=== PATIENT | female | born 1980 | race Caucasian/White ===

== ENCOUNTER → 2017-08-28 10:44 | Outpatient (CLI) | payer BC, SELFPAY ==
--- NOTE | 2017-08-28 10:50 | RAD_ITS ---
STUDY: X-RAY - LUMBOSACRAL SPINE REASON FOR EXAM: Female, 37 years old. Back pain TECHNIQUE: 7 view(s) of the lumbosacral spine including flexion and extension were obtained. COMPARISON: None FINDINGS: Normal lumbar lordosis. There is no substantial scoliosis. There is no subluxation with flexion and extension. Normal vertebral bodies. Disc space narrowing and spurring at L5-S1. . The remainder of the disc spaces are well-preserved. Normal bilateral sacral ala, sacroiliac joints, and visualized sacrum. No fracture seen. Normal visualized soft tissue structures. RAD/L/S Spine Comp/w Bending Views IMPRESSION: Degenerative change at L5-S1. Electronically Signed: Omar Mohan MD at 23:58 EDT , Service support ,
== END ==
PROVIDERS: Family Provider Internal Medicine; PCP Internal Medicine; Visit Provider Orthopaedic Surgery
DX: M54.5 Low back pain (principal)
CPT/HCPCS: 72114

== ENCOUNTER → 2017-10-23 13:19 | Outpatient (CLI) | payer BC, SELFPAY ==
--- NOTE | 2017-10-23 13:22 | RAD_ITS ---
STUDY: X-RAY CHEST REASON FOR EXAM: Female, 37 years old. Cough. Anterior mid upper chest heaviness TECHNIQUE: 2 views with PA and lateral projections. . COMPARISON: None available. FINDINGS: The lungs appear clear and well expanded. There is no demonstrated pleural abnormality. No large gross pneumothorax identified. Normal size heart. Normal mediastinum and kyra. Normal visualized pulmonary arteries. Normal visualized aortic arch and descending thoracic aorta. Trachea midline. Nonacute visualized ribs, clavicles and shoulders. Moderate degenerative upper-mid thoracic spine seen. There is no demonstrated abnormality of the visualized soft tissue structures of the upper abdomen. No subdiaphragmatic free air seen grossly. RAD/Chest PA and Lateral IMPRESSION: Nonacute chest. Electronically Signed: Carl Sanches, at 14:59 EDT Tel , Service support ,
== END ==
PROVIDERS: Family Provider Internal Medicine; PCP Internal Medicine; Visit Provider Internal Medicine
DX: J98.01 Acute bronchospasm (principal)
CPT/HCPCS: 71046

== ENCOUNTER → 2017-11-20 15:58 | Outpatient (CLI) | payer BC, SELFPAY ==
[2017-11-26 12:13] LABS: HPV Reflexed? NOT INDICATED
== END ==
PROVIDERS: Visit Provider Obstetrics & Gynecology
DX: Z12.4 Encounter for screening for malignant neoplasm of cervix (principal)
CPT/HCPCS: 88175; G0145

== ENCOUNTER → 2018-01-16 16:23 | Outpatient (CLI) | payer BC, SELFPAY ==
--- NOTE | 2018-01-16 16:28 | MRI_ITS ---
STUDY: MRI LUMBAR SPINE WITHOUT CONTRAST REASON FOR EXAM: Female, 37 years old. Right low back pain radiating to the right buttock and thigh TECHNIQUE: Standardized fat and water weighted pulse sequences were obtained in the sagittal and axial planes. COMPARISON: None FINDINGS: T12-L1: Normal endplates. Normal disc height, hydration and morphology. Normal bilateral facet joints. Normal central canal and bilateral lateral recesses. Normal bilateral intervertebral neural foramina. Normal lumbar lordosis. There is no substantial scoliosis. Normal conus medullaris that terminates at the L1-2 level. L1-2: Normal endplates. Normal disc height, hydration and morphology. Normal bilateral facet joints. Normal central canal and bilateral lateral recesses. Normal bilateral intervertebral neural foramina. L2-3: Normal endplates. Normal disc height, hydration and morphology. Normal bilateral facet joints. Normal central canal and bilateral lateral recesses. Normal bilateral intervertebral neural foramina. L3-4: Normal endplates. Normal disc height, hydration and morphology. Normal bilateral facet joints. Normal central canal and bilateral lateral recesses. Normal bilateral intervertebral neural foramina. L4-5: Disc desiccation. Bulging annulus without compressive sequelae. L5-S1: Disc space narrowing and desiccation with discogenic endplate changes. Bulging annulus and broad central disc protrusion with mild central canal and bilateral foraminal stenoses. Normal visualized sacral ala. Normal visualized paraspinous soft tissue structures. MRI/Spine Lumbar (Routine) IMPRESSION: Lower lumbar disc disease as described. Mild central canal and bilateral foraminal stenoses at the L5-S1 level. Electronically Signed: Ousmane Gomez MD at 2:10 EST Tel , Service support ,
== END ==
PROVIDERS: Family Provider Internal Medicine; PCP Internal Medicine; Referring Provider Physician Assistant; Visit Provider Physician Assistant
DX: M54.16 Radiculopathy, lumbar region (principal)
CPT/HCPCS: 72148

== ENCOUNTER → 2019-04-30 | Outpatient (CLI) | payer BC, SELFPAY ==
[2018-03-15 10:20] VITALS: BMI 26.6
[2019-05-04 15:04] LABS: HPV Reflexed? NOT INDICATED
== END | disposition home or self-care (01) ==
LOC: LABSPEC 15:01
PROVIDERS: PCP Family Medicine; Visit Provider Obstetrics & Gynecology
DX: Z12.4 Encounter for screening for malignant neoplasm of cervix (principal)
CPT/HCPCS: 88175; G0145

== ENCOUNTER → 2019-05-14 | Outpatient (CLI) | payer BC, SELFPAY ==
[2018-03-15 10:20] VITALS: BMI 26.6
--- NOTE | 2019-05-14 10:23 | BI_ITS ---
MAMMOGRAPHY - BILATERAL SCREENING REASON FOR EXAM: Female, 39 years old. Routine annual screening examination. PERTINENT HISTORY: No family history of breast cancer TECHNIQUE: Digital bilateral breast padma (3D mammographic acquisition) in the CC and MLO projections. 2-D mediolateral oblique (MLO) and craniocaudad (CC) views of both breasts were obtained. CAD: Full Field Digital Mammography with Computer Added Detection was performed. COMPARISON: None. FINDINGS: Breast Composition: Dense central breast structure There are no dominant masses or suspicious calcifications. No other significant abnormalities are identified. BI/SCREEN MAMM (CAD) W/PADMA BILAT IMPRESSION: Stable bilateral screening mammogram. Yearly follow-up mammogram recommended. (A) ASSESSMENT CATEGORY: BIRADS Category 1: Negative. A letter regarding these results will be sent to the patient by the facility within 30 days. Approximately 10% of breast cancers are not detected by mammography. A normal mammogram should not delay biopsy of a clinically suspicious abnormality. [id number] Electronically Signed: Rell Ley, at 16:34 EST Tel , Service support ,
== END | disposition home or self-care (01) ==
LOC: OPBI 10:22
PROVIDERS: PCP Family Medicine; Referring Provider Obstetrics & Gynecology; Visit Provider Obstetrics & Gynecology
DX: Z12.31 Encounter for screening mammogram for malignant neoplasm of breast (principal)
CPT/HCPCS: 77063; 77067

== ENCOUNTER 2020-11-30 08:17 | Outpatient (RCR) | payer SELFPAY ==
--- NOTE | 2021-02-27 12:34 | HP.PT.NRP ---
MAGDIEL B CARMELITA was seen in my office for initial evaluation on . The following Plan of Care was established for this patient: This patient was last seen in our office 11/30/20. Pertinent comments regarding their Physical therapy will appear below: Pt. was seen in PT for self pay DN. She has not been seen in several months and will be DC from PT at this point in time. At this point I will be discontinuing this patient from physical therapy. I would be happy to see this patient again in the future if found appropriate by the physician. Thank you! Vicente Guzmán, GREGGT
== END 2020-11-30 19:00 | disposition home or self-care (01) ==
LOC: PT 08:17
PROVIDERS: PCP Family Medicine
DX: Z00.00 Encounter for general adult medical examination without abnormal findings (principal)

== ENCOUNTER 2021-06-13 16:30 | Outpatient (RCR) | payer OTHER, SELFPAY ==
--- NOTE | 2021-05-23 13:52 | HP.PTEVAL ---
Patient's Visit Information MAGDIEL MAE is a 41 year old F referred to Physical Therapy by IZABELA Rice with a diagnosis of Hamstring. Date of Evaluation: 05/23/21 Physical Therapist: Palmira Segal DPT - Visit Plan Frequency: 2x /Week Duration: 4 Weeks Plan: 30 min modalities- Manual, DN, Cupping, EPAT. 30 min of exercises- focus on glut and posterior chain - Subjective Patient reports falling about a year ago when running on the trails. Tripped with her right and caught herself with her left leg- felt a pull but was able to finish the race. No bruising but has been really sore since. Now its more chronic. She has had some dry needling and it really helped down from a 5 down to a 2. [place] good for a few weeks after and she laid off running. Would do the bike and rolling. She ran all last spring and fall. End of December she ran a full marathon- She has not run a lot since January. She hits about 5 miles and it just doesn't feel right. She cross trained (stationary bike, body weight squats, core, yoga and snowboarding). It feels the same. She feels that she has limited flexibility. She feels that she is 50% back to normal. Pain is located in the left hamstring bulk and if she sits for to long it gets irritated and always feels tight with running. No sharp/shooting. Limited ROM with stretching. - Objective Posture: good throughout session. Gait: slightly antalgic- decreased stride length. HR/TR: able without pain. ROM: Lumbar: flexion: hands to knees with discomfort, all other motions WFL, Hip: WFL no pain with ROM. Strength: Core: fair, Hip: flexion: 4-/5, Extn: 4-/5 with , IR/ER: 4-/5, Abd: 5/5, Add: 5/5 Knee: Hamstrin/5, Extn: 5/5, Ankle: 5/5. Flex: Hamstring 90/90: 90 degrees with pain, Gastroc: moderate. Palpation: tender along gluts from sacrum to greater troch, ischial tuberosity insertion of hamstring, and along hamstring to the knee. SLS: 30 sec increased hip drop and instability. Eccentric Lowering: increased pain and reports hard. - Special Tests. L/S Slump test left side: Negative. L/S Slump test right side: Negative. L/S Left Straight Leg Raise: Negative. L/S Right Straight Leg Raise: Negative. L Hip Scour: Negative. L Hip KELSY - Intraarticular Pathology: Positive. L Hip FADDIR - Labrum: Positive. L Hip Trendelenberg - Glut Medius: Positive. L Knee Valgus - MCL: Negative. L Knee Varus - LCL: Negative - Balance/Special Test Scores Lower Extremity Functional Score: 70 - Goals Goal 1:: Patient will be I with HEP and progression Goal Time Frame: 4-6 Weeks Goal 2:: Patient will increase hamstring flexibility to 120 degrees Goal Time Frame: 4-6 Weeks Goal 3:: Patient will report no pain with running Goal Time Frame: 4-6 Weeks - Rehabilitation Potential Physical Therapy Diagnosis: Patient presents with hypomobility- she has decreased pain free ROM, LE and core strength/stabilization, flex and muscular endurance leading to poor posture and increased pain with ADL's/recreational activities. Rehabilitation Potential: Good - Anticipated Interventions Patient/Client Instruction: Educate patient on: Benefits of Fitness Program Therapeutic Exercise to Include: Strength training, Endurance training, Balance training, Coordination, Agility training, Body mechanics, Postural training, Flexibilty training, Gait and locomotor training, Neuromotor development, Dynamic Lumbar Stabilization, Scapular Strength/Stabilization Manual Therapy Techniques to Include: Mobilization, Functional dry needling, Soft tissue mobilization Thank you for the opportunity to evaluate your patient. For Medicare and Medicare HMO plans, please review the plan of care and approve it. It will need to be FAXED BACK to us at [phone] for Medicare purposes. For Medicare only, by signing this I certify the plan of care. Please let me know if there are questions or concerns regarding this plan of care. Physician Signature: Date:
--- NOTE | 2021-08-30 14:08 | HP.PT.NRP ---
MAGDIEL MAE was seen in my office for initial evaluation on 05/23/21. The following Plan of Care was established for this patient: Initial Frequency: 2x /Week Initial Duration: 4 Weeks Patient/Client Instruction: Educate patient on: Benefits of Fitness Program Therapeutic Exercise to Include: Strength training, Endurance training, Balance training, Coordination, Agility training, Body mechanics, Postural training, Flexibilty training, Gait and locomotor training, Neuromotor development, Dynamic Lumbar Stabilization, Scapular Strength/Stabilization Manual Therapy Techniques to Include: Mobilization, Functional dry needling, Soft tissue mobilization This patient was last seen in our office . Pertinent comments regarding their Physical therapy will appear below: Patient has not attended PT in over 30 days and is independent with HEP- appropriate to be d/c and return to MD for further evaluation as needed. At this point I will be discontinuing this patient from physical therapy. I would be happy to see this patient again in the future if found appropriate by the physician. Thank you! Palmira Segal, GREGGT Balance/Gait/Functional tests - Balance/Special Test Scores Lower Extremity Functional Score: 70
== END 2021-06-13 19:00 | disposition home or self-care (01) ==
LOC: PT 16:30
PROVIDERS: PCP Family Medicine; Referring Provider Physician Assistant; Visit Provider Physician Assistant
DX: S76.312D Strain of muscle, fascia and tendon of the posterior muscle group at thigh level, left thigh, subsequent encounter (principal)
CPT/HCPCS: 97110; 97140; 97162

== ENCOUNTER → 2021-08-08 | Outpatient (CLI) | payer OTHER, SELFPAY ==
--- NOTE | 2021-08-08 14:17 | BI_ITS ---
MAMMOGRAPHY - BILATERAL SCREENING REASON FOR EXAM: Female, 41 years old. Routine annual screening examination. PERTINENT HISTORY: Non-contributory. TECHNIQUE: Digital bilateral breast padma (3D mammographic acquisition) in the CC and MLO projections. 2-D mediolateral oblique (MLO) and craniocaudad (CC) views of both breasts were obtained. CAD: Full Field Digital Mammography with Computer Added Detection was performed. COMPARISON: Screening mammogram from 05/14/2019. FINDINGS: Breast Composition: The breasts are heterogeneously dense, which may obscure small masses. There are no dominant masses or suspicious calcifications. No other significant abnormalities are identified. There has been no significant change since the prior study. BI/SCRN MAMM (CAD)W/PADMA BILAT IMPRESSION: Stable bilateral screening mammogram. Yearly follow-up mammogram recommended. (A) ASSESSMENT CATEGORY: BIRADS Category 1: Negative. A letter regarding these results will be sent to the patient by the facility within 30 days. Approximately 10% of breast cancers are not detected by mammography. A normal mammogram should not delay biopsy of a clinically suspicious abnormality. [id number] Electronically Signed: Hermilo Kohli, at 15:49 EDT ,
== END | disposition home or self-care (01) ==
LOC: OPBI 14:15
PROVIDERS: PCP Family Medicine; Visit Provider Obstetrics & Gynecology
DX: Z12.31 Encounter for screening mammogram for malignant neoplasm of breast (principal)
CPT/HCPCS: 77063; 77067

== ENCOUNTER 2021-11-09 12:46 | Outpatient (RCR) | payer OTHER, SELFPAY ==
--- NOTE | 2021-11-09 14:43 | HP.PTEVAL ---
Patient's Visit Information MAGDIEL MAE is a 41 year old F referred to Physical Therapy by Self Referred with a diagnosis of neck pain, L UT. Date of Evaluation: 11/09/21 Physical Therapist: Vicente Guzmán DPT - Visit Plan Frequency: 1x/Week Duration: 6 Weeks Plan: Start with DN to L UT, L levator scap, L cervical erector spinae. - Subjective Pt. is here today for her initial visit for self pay DN. Pt. reports having L UT/neck pain. Pt. reports no mech of injury. Pt. has been running more, but can not remember any cause of her symptoms. She was adjusted which did help. Pt. reports no N/T. No weakness, no other issues. She denies radicular symptoms as well. Pt. denied sending note to physician. - Pain L UT region Pain Intensity (Out of 10): 3 - Objective POSTURE: Normal. PALPATION: Pt. is tender at L UT, L levator scap, L erector spinae. NEURO: normal throughout. ROM: CERVICAL SPINE: rotation R normal, rotation L min loss increase NW, SB normal bilaterally, extension min loss pinching noted. Normal shoulder ROM. MMT: full no pain BUEs. - Balance/Special Test Scores Oswestry Neck Score: 5 - Goals Goal 1:: LTG: Pt. to have no L sided cervical spine pain Goal Time Frame: 2-4 Weeks - Rehabilitation Potential Physical Therapy Diagnosis: Pt. has tightness in L UT, muscle spasms on the L side of her cervical spine. Rehabilitation Potential: Excellent - Anticipated Interventions Patient/Client Instruction: Educate patient on: Condition, Plan of Care, Risk Factors, Benefits of Fitness Program For the Purpose of:: To improve health and function, To foster healthy habits, To improve decision making, To facilitate caregiver knowledge, To improve self management, To prevent re-injury, To improve ability to perform tasks related to life management Manual Therapy Techniques to Include: Functional dry needling, Soft tissue mobilization For the Purpose of:: To decrease pain, To decrease swelling/inflammation, To increase ROM, To improve nutrient delivery to tissue Thank you for the opportunity to evaluate your patient. For Medicare and Medicare HMO plans, please review the plan of care and approve it. It will need to be FAXED BACK to us at [phone] for Medicare purposes. For Medicare only, by signing this I certify the plan of care. Please let me know if there are questions or concerns regarding this plan of care. Physician Signature: Date:
== END 2021-11-09 19:00 | disposition home or self-care (01) ==
LOC: PT 12:46
PROVIDERS: PCP Family Medicine
DX: R69 Illness, unspecified (principal)

== ENCOUNTER → 2023-05-09 | Outpatient (CLI) | payer OTHER, SELFPAY ==
--- NOTE | 2023-05-09 08:01 | BI_ITS ---
MAMMOGRAPHY - BILATERAL SCREENING REASON FOR EXAM: Female, 43 years old. Routine annual screening examination. PERTINENT HISTORY: Non-contributory. TECHNIQUE: Digital bilateral breast padma (3D mammographic acquisition) in the CC and MLO projections. 2-D mediolateral oblique (MLO) and craniocaudad (CC) views of both breasts were obtained. CAD: Full Field Digital Mammography with Computer Added Detection was performed. COMPARISON: Comparison is made with prior study of August 08, 2021 and May 14, 2019. FINDINGS: Breast Composition: The breasts are extremely dense, which lowers the sensitivity of mammography. There are no dominant masses or suspicious calcifications. Stable small benign-appearing bilateral axillary lymph nodes. No other significant abnormalities are identified. There has been no significant change since the prior study. BI/SCRN MAMM (CAD)W/PADMA BILAT IMPRESSION: Stable bilateral screening mammogram. Yearly follow-up mammogram recommended. (A) ASSESSMENT CATEGORY: BIRADS Category 2: Benign. A letter regarding these results will be sent to the patient by the facility within 30 days. Approximately 10% of breast cancers are not detected by mammography. A normal mammogram should not delay biopsy of a clinically suspicious abnormality. [id number] Electronically Signed: Mina Sellers MD at 8:49 EST ,
--- OUTSIDE RECORDS SUMMARY | 2023-05-09 08:13 | XMS RPT_ITS | CCD ---
Author Name Unknown Address [address] [place] [address] Organization [facility] Care Team Providers Care Research Laboratory Specialist Name Role Phone Rima Jenkins Unavailable Lance Lindsay Unavailable Unavailable [place] Blair Unavailable Unavailable Unavailable Unavailable Medications Completed/Discontinued Medications Medication Drug Class(es) Dates Sig (Normalized) Sig (Original) 200 actuat albuterol 0.09 mg/actuat metered dose inhaler (1 source) beta2-Adrenergic Agonist Start: 10-21-2017 End: 04-09-2019 take 2 puff(s) by inhalation three times daily as needed ProAir HFA 108 (90 Base) MCG/ACT Inhalation Aerosol Solution 2 (two) Puff Puff tid prn for 0 days Quantity: 1 {Inhaler} Refills: 0 Ordered: 09-Apr-2019 [place] Blair CMA Start : 21-Oct-2017 End : 09-Apr-2019 Inactive amoxicillin 875 mg / clavulanate 125 mg oral tablet (1 source) Penicillin-class Antibacterial Start: 05-13-2016 End: 01-27-2017 take 1 tablet by mouth twice daily Augmentin 875-125 MG Oral Tablet 1 (one) Tablet bid for 0 days Quantity: 20 {Tablet} Refills: 0 Ordered: 27-Jan-2017 Slarb Martha MERCADO Start : 13-May-2016 End : 27-Jan-2017 Inactive biotin 1 mg oral capsule (1 source) take 1 capsule by mouth once daily Biotin 1 MG Oral Capsule 1 daily (1 MG) Active cefadroxil 500 mg oral capsule (1 source) Cephalosporin Antibacterial Start: 01-27-2017 End: 02-06-2017 take 1 capsule by mouth twice daily Cefadroxil 500 MG Oral Capsule 1 (one) Capsule PO BID for 10 days Quantity: 20 {Capsule} Refills: 0 Ordered: 27-Jan-2017 Esther Acevedo Start : 27-Jan-2017 End : 06-Feb-2017 Inactive doxycycline hyclate 100 mg oral capsule (1 source) Tetracycline-class Drug Start: 10-23-2017 End: 04-09-2019 take 1 capsule by mouth twice daily Doxycycline Hyclate 100 MG Oral Capsule 1 (one) Capsule bid for 0 days Quantity: 20 {Capsule} Refills: 0 Ordered: 09-Apr-2019 Johnnie HAYLEEChuckiein Start : 23-Oct-2017 End : 09-Apr-2019 Inactive Multi Vitamin Oral Tablet (1 source) Multi Vitamin Or al Tablet Active Multivitamins Oral Capsule (1 source) Start: 11-06-2015 End: 01-27-2017 take 1 capsule by mouth once daily Multivitamins Oral Capsule 1 (one) Capsule Capsule qd for 30 days Refills: 0 Ordered: 27-Jan-2017 Martha Fuller LPN Start : 06-Nov-2015 End : 27-Jan-2017 Inactive predniSONE 10 mg oral tablet (2 sources) Start: 10-21-2017 End: 04-09-2019 predniSONE 10 MG Oral Tablet 1 (one) Tablet Tablet bid x 3 days for 0 days Quantity: 6 {Tablet} Refills: 0 Ordered: 09-Apr-2019 Annikafestus LEACH [place] Start : 21-Oct-2017 End : 09-Apr-2019 Inactive Comments: with food Problems Active Problems Problem Classification Problem Date Documented Da te Episodic/Chronic Allergic reactions (2 sources) Contact dermatitis due to poison symone; Translations: [Contact dermatitis due to poison symone] 11-26-2019 Episodic Fever of unknown origin (3 sources) Fever with chills; Translations: [Fever chills] Resolved: 10-23-2017 06-08-2019 Episodic Fluid and electrolyte disorders (2 sources) Dehydration; Translations: [Dehydration] 11-26-2019 Episodic Past or Other Problems Problem Classification Problem Date Documented Da te Episodic/Chronic Inflammation; infection of eye (except that caused by tuberculosis or sexually transmitteddisease) (1 source) Hordeolum externum of lower eyelid of right eye; Translations: [Hordeolum externum of right lower eyelid] 11-26-2019 Other skin disorders (1 source) Eruption; Translations: [Rash] Resolved: 04-09-2019 06-08-2019 Episodic Residual codes; unclassified (1 source) Generalized aches and pains; Translations: [Body aches] Resolved: 10-23-2017 06-08-2019 Episodic Unclassified (8 sources) Non-smoker; Translations: [Non-smoker] 11-26-2019 Unclassified (2 sources) Breast feeding status of mother; Translations: [Mother currently breast-feeding] 11-26-2019 Unclassified (1 source) Rash Unclassified (9 sources) Unclassified (2 sources) Body aches Unclassified (1 source) BMI 26.0-26.9,adult Unclassified (1 source) Reaction to influenza immunization, initial encounter Unclassified (1 source) Cellulitis of left upper arm Unclassified (1 source) Left arm pain Unclassified (2 sources) Patient encounter status; Translations: [Physical exam] 11-26-2019 Unclassified (1 source) Pregnancies (); Translations: [Pregnancies ()] 11-26-2019 Results Test Name Value Interpretation Reference Range Facil ity Vital Signs Date Time Vital Sign Value Performing Clinician Faci lity 11-26-2019 13:32-0400 BMI (Body Mass Index) 25.57 kg/m2 Rima Obrien Information Technology Coordinator al Medicine Work Phone: Encounters Encounter Date Encounter Type Care Provider Facility Start: 11-26-2019 End: 11-26-2019 Office outpatient visit 10 minutes Rima [facility] Start: 06-09-2019 End: 06-09-2019 Nursing evaluation of patient and report Rima Ob[facility] Start: 06-08-2019 End: 06-08-2019 Office outpatient visit 15 minutes Rima Ob[facility] Start: 04-09-2019 End: 04-09-2019 Periodic preventive med est patient 40-64yrs Rima [facility] Start: 10-23-2017 End: 10-23-2017 Office outpatient visit 15 minutes Rima [facility] Start: 10-23-2017 End: 10-23-2017 Annotation/Addendum Rima bOrien Information Technology Coordinator al Medicine Start: 10-21-2017 End: 10-21-2017 Office outpatient visit 15 minutes Rima Jenkins [facility] Start: 01-27-2017 End: 01-27-2017 Office outpatient visit 15 minutes Rima Gregory [facility] Start: 05-13-2016 End: 05-13-2016 Office outpatient visit 15 minutes Rima Jenkins [facility] Start: 11-06-2015 End: 11-06-2015 Office outpatient new 20 minutes Rima Jenkins [facility] Internal Medicine Procedures Date Procedure Procedure Detail Performing Clinician Start: 03-19-2018 End: 03-19-2018 Urgent Care Visit Report Comments: See Note; NOTES: [facility] [address] [place] [address] [address] [place] [address] OFFICE VISIT Date of Service: 03/15/18 MR#: [id number] Acct: [id number] Name: MAGDIEL MAE Rep #: [id number] : 1980 Provider: IZABELA Craft Age/Sex: 37/F [place] [facility] Status: Signed with Addenda ADDENDUM by Eduin GURROLA on 03/19/18 at 1100 Addendum entered and electronically signed by IZABELA De La Torre 03/19/18 11:00: Due to perisstent symptoms w/ progressively worsening productive exudative cough, azithromycin prescription provided at patient's request. Patient made aware of the previous by nursing. HPI Details: MAGDIEL MAE, is a 37 F who presents to the office today for Assessment AND Plan Problems 1. Wheezing R06.2 2. Acute viral syndrome B34.9 Medications New: prednisone 2 pills daily x 3 days, then 1 pi20 mg PO DAILY 12 tabs 0RF IZABELA Marie ll daily x 4 days, then 1/2 pill daily x 4 days . 03/19/18 1100 <Electronically signed by Eduin GURROLA> Date Eduin Quick cc: * Signed Intake Vital Signs03/15/18 Height 5 ft 10 in Intake Visit Reasons: COUGH, SOB AT NIGHT Chief Complaint: cough Licensed Vocational Nurse Required: No Accompanied by: self Is patient in pain?: No Allergies No Known Allergies Allergy (Verified 03/15/18 10:21) Medications prednisone 20 mg tablet 20 mg PO DAILY #12 tab 03/15/18 [Rx Confirmed 03/15/18] [facility] Medical History Shortness of breath (Acute) Chronic neck and back pain (Chronic) Surgical History History of tonsillectomy and adenoidectomy (Acute) Social History Smoking Status: Never smoker HPI HPI Chief Complaint: cough Details: MAGDIEL MAE, is a 37 F who presents to the office today for a cough with low-grade fever for 3-4 days. Her symptoms acutely worsened on 03/14/2018. She states she became short of breath during the middle the night. Her symptoms resolved after a few minutes. She reports some mild sinus pressure. She has been taking feah-ies-lqntxqg Mucinex and ibuprofen. She has an albuterol inhaler at home but has not used it since she became ill. ROS Const Constitutional: Positive for fever(s) Eyes Eyes: No change in vision ENT ENT: No ear pain, sore throat, nasal congestion or nasal discharge Resp Respiratory: Positive for cough Cough: Yes non-productive and shortness of breath (One episode of shortness of breath at night which resolved spontaneously) Cardio Cardiology: No chest pain at rest or chest pain with exertion Gastro GI: No abdominal pain, diarrhea, vomiting or nausea/dyspepsia Musc Musculoskeletal: No back pain or abnormal walking Skin Skin: No rash or change in skin color Neuro Neurology: No confusion, abnormal walking or abnormal speech Psych Psychiatric: No confusion Exam Const General: healthy appearing, no acute distress Orientation: oriented x3, oriented to person, oriented to place, oriented to time [facility] Head: normocephalic Ears: external ears normal, TM's normal bilaterally, EAC's normal Eyes General: appearance normal, both eyes and all related structures Conjunctivae: conjunctivae normal Sclera: sclerae normal Pupils: PERRL Neck Neck: no lymphadenopathy Thyroid: thyroid normal Chest Chest palpation AND inspection: normal inspection of the chest Resp Effort AND Inspection: normal respiratory effort, no cough, no respiratory distress Auscultation: Bilateral: Expiratory Wheezes (Upper and middle lobes) Cardio Rate: regular rate Rhythm: regular rhythm GI Inspection: normal to inspection Auscultation: normal bowel sounds Palpation: no hepatosplenomegaly, no splenomegaly, no masses Skin General: no pallor Rashes: no rashes Nails: no clubbing Neuro General: oriented x3, gait normal Extrem General: normal to inspection, no pedal edema, no calf tenderness, normal gait, no edema, no cyanosis, no clubbing, no calf tenderness bilaterally, no pedal edema Psych Mood: congruent mood Affect: normal affect Speech and Movement: speech and movement normal Assessment AND Plan Problems 1. Wheezing R06.2 2. Acute viral syndrome B34.9 Plan The patient was advised to begin her albuterol inhaler. She was instructed to push fluids and continue the asrv-uhb-jrrkxsw Mucinex and ibuprofen as needed. She was instructed to begin the prednisone as directed. Return to the clinic if symptoms worsen and/or follow-up with primary care physician if needed. Medications New: prednisone 2 pills daily x 3 days, then 1 pill daily x 4 da20 mg PO DAILY 12 tabs 0RF ys, then 1/2 pill daily x 4 days. Coding Level of Care Code Off vis,est,level 4 Diagnoses Wheezing R06.2 Acute viral syndrome B34.9 03/15/18 1114 <Electronically signed by Brandon GURROLA> Date Brandon GURROLA Cosigner Signature: Date (if applicable) CC: Rima Jenkins Start: 03-15-2018 End: 03-15-2018 Urgent Care Visit Report Comments: See Note; NOTES: [facility] [address] [place] [address] OFFICE VISIT Date of Service: 03/15/18 MR#: [id number] Acct: [id number] Name: NEREYDAMAGDIEL SYKES Kai Rep #: [id number] : 1980 Provider: IZABELA Craft Age/Sex: 37/F Location[place] [facility] Status: Signed Intake Vital Signs03/15/18 Height 5 ft 10 in Intake Visit Reasons: COUGH, SOB AT NIGHT Chief Complaint: cough Licensed Vocational Nurse Required: No Accompanied by: self Is patient in pain?: No Allergies No Known Allergies Allergy (Verified 12/30/18 10:21) Medications prednisone 20 mg tablet 20 mg PO DAILY #12 tab 03/15/18 [Rx Confirmed 03/15/18] [facility] Medical History Shortness of breath (Acute) Chronic neck and back pain (Chronic) Surgical History History of tonsillectomy and adenoidectomy (Acute) Social History Smoking Status: Never smoker HPI HPI Chief Complaint: cough Details: MAGDIEL MAE, is a 37 F who presents to the office today for a cough with low-grade fever for 3-4 days. Her symptoms acutely worsened on 03/14/2018. She states she became short of breath during the middle the night. Her symptoms resolved after a few minutes. She reports some mild sinus pressure. She has been taking aejm-yag-dbubcvl Mucinex and ibuprofen. She has an albuterol inhaler at home but has not used it since she became ill. ROS Const Constitutional: Positive for fever(s) Eyes Eyes: No change in vision ENT ENT: No ear pain, sore throat, nasal congestion or nasal discharge Resp Respiratory: Positive for cough Cough: Yes non-productive and shortness of breath (One episode of shortness of breath at night which resolved spontaneously) Cardio Cardiology: No chest pain at rest or chest pain with exertion Gastro GI: No abdominal pain, diarrhea, vomiting or nausea/dyspepsia Musc Musculoskeletal: No back pain or abnormal walking Skin Skin: No rash or change in skin color Neuro Neurology: No confusion, abnormal walking or abnormal speech Psych Psychiatric: No confusion Exam Const General: healthy appearing, no acute distress Orientation: oriented x3, oriented to person, oriented to place, oriented to time [facility] Head: normocephalic Ears: external ears normal, TM's normal bilaterally, EAC's normal Eyes General: appearance normal, both eyes and all related structures Conjunctivae: conjunctivae normal Sclera: sclerae normal Pupils: PERRL Neck Neck: no lymphadenopathy Thyroid: thyroid normal Chest Chest palpation AND inspection: normal inspection of the chest Resp Effort AND Inspection: normal respiratory effort, no cough, no respiratory distress Auscultation: Bilateral: Expiratory Wheezes (Upper and middle lobes) Cardio Rate: regular rate Rhythm: regular rhythm GI Inspection: normal to inspection Auscultation: normal bowel sounds Palpation: no hepatosplenomegaly, no splenomegaly, no masses Skin General: no pallor Rashes: no rashes Nails: no clubbing Neuro General: oriented x3, gait normal Extrem General: normal to inspection, no pedal edema, no calf tenderness, normal gait, no edema, no cyanosis, no clubbing, no calf tenderness bilaterally, no pedal edema Psych Mood: congruent mood Affect: normal affect Speech and Movement: speech and movement normal Assessment AND Plan Problems 1. Wheezing R06.2 2. Acute viral syndrome B34.9 Plan The patient was advised to begin her albuterol inhaler. She was instructed to push fluids and continue the pbuh-ipr-lamamta Mucinex and ibuprofen as needed. She was instructed to begin the prednisone as directed. Return to the clinic if symptoms worsen and/or follow-up with primary care physician if needed. Medications New: prednisone 2 pills daily x 3 days, then 1 pill daily x 4 da20 mg PO DAILY 12 tabs 0RF ys, then 1/2 pill daily x 4 days. Coding Level of Care Code Off vis,est,level 4 Diagnoses Wheezing R06.2 Acute viral syndrome B34.9 03/15/18 1114 <Electronically signed by Brandon GURROLA> Date Brandon GURROLA Cosigner Signature: Date (if applicable) CC: Rima Jenkins Start: 01-16-2018 End: 01-21-2018 Spine Lumbar (Routine) Comments: See Note; NOTES: [facility] Imaging Services [address] [place] [address] Spine Lumbar (Routine) MR#: [id number] Acct: [id number] Name: CARMELITAMAGDIEL B Rep #: [id number] : 1980 F 37 From: Ousmane Gomez MD PCP: Rima Jenkins DO Status: REG CLI Study: Spine Lumbar (Routine) Date of Exam: 01/16/18 Exam# [id number] Ordering Dr: Frank Francis STUDY: MRI LUMBAR SPINE WITHOUT CONTRAST REASON FOR EXAM: Female, 37 years old. Right low back pain radiating to the right buttock and thigh TECHNIQUE: Standardized fat and water weighted pulse sequences were obtained in the sagittal and axial planes. COMPARISON: None FINDINGS: T12-L1: Normal endplates. Normal disc height, hydration and morphology. Normal bilateral facet joints. Normal central canal and bilateral lateral recesses. Normal bilateral intervertebral neural foramina. Normal lumbar lordosis. There is no substantial scoliosis. Normal conus medullaris that terminates at the L1-2 level. L1-2: Normal endplates. Normal disc height, hydration and morphology. Normal bilateral facet joints. Normal central canal and bilateral lateral recesses. Normal bilateral intervertebral neural foramina. L2-3: Normal endplates. Normal disc height, hydration and morphology. Normal bilateral facet joints. Normal central canal and bilateral lateral recesses. Normal bilateral intervertebral neural foramina. L3-4: Normal endplates. Normal disc height, hydration and morphology. Normal bilateral facet joints. Normal central canal and bilateral lateral recesses. Normal bilateral intervertebral neural foramina. L4-5: Disc desiccation. Bulging annulus without compressive sequelae. L5-S1: Disc space narrowing and desiccation with discogenic endplate changes. Bulging annulus and broad central disc protrusion with mild central canal and bilateral foraminal stenoses. Normal visualized sacral ala. Normal visualized paraspinous soft tissue structures. MRI/Spine Lumbar (Routine) IMPRESSION: Lower lumbar disc disease as described. Mild central canal and bilateral foraminal stenoses at the L5-S1 level. Electronically Signed: Ousmane Gomez MD at 2:10 EST Tel , Service support , CC: IZABELA Francis; Rima Jenkins DO Mine Safety Engineer: Signed Rima Jenkins Start: 01-05-2018 End: 01-05-2018 Orthopedic Visit Report Comments: See Note; NOTES: [facility] Orthopa[facility] Sports Medicine [address] [place] [address] OFFICE VISIT Date of Service: 12/29/17 MR#: [id number] Acct: [id number] Name: MAGDIEL MAE Rep #: [id number] : 1980 Provider: IZABELA Francis Age/Sex: 37/F Location[place] [facility] Status: Signed Intake Intake Visit Reasons: low back pain Is patient in pain?: Yes Allergies No Known Allergies Allergy (Verified 04/22/15 03:24) Medications Vits [Prenatabs FA] 1 tab PO DAILY 04/22/15 [History Confirmed 04/22/15] PFSH Social History Smoking Status: Never smoker HPI low back pain: Details: MAGDIEL MAE is a 37 year old F here today for lumbar radiculopathy that is increasing since playing with her kids at a [employer] park several weeks ago. She has tried chiro care, traction, extension exercises, heat and muscle stim modalities with little relief. She has ceased all exercising other than elliptical, no twisting motions as that increased her pain. Her radiating pain is in the right leg only, hip, quad and ends in the lateral lower leg, nothing to her foot. She has tried otc nsaids as well with no relief. Her pain is beginning to wake her at night with sharp pain and unrelenting discomfort. She has xrays here for review but no other imaging or injections. Ortho Exam Right Hip Hip: absent soft tissue swelling, absent TTP [place] Special Tests: No pain with log roll, No WENDY test, No IT band snap Homans Sign: No HIP: Patient has Normal ROM of the HIP and normal strength as well. Forward flexion does show some compensation with her wanting to angle to the right instead of going straight forward. The same motion is noted when she goes to stand back up straight. She does not have a great rocking motion of the right side of the pelvis while supine either (ASIS rocking). The right side does not have the motion that the left side does. She does have some tenderness though just above the sciatic notch over the piriformis muscles. Spine Neuro: No Clonus or Straight Leg Raise Gait: normal gait Motor: strength 5/5 throughout, muscle tone normal throughout DTR's: Rt Patellar: 2+, Lt Patellar: 2+, Rt Ankle: 2+, Lt Ankle: 2+ SPINE TESTING CERVICAL THORACIC LUMBAR SLR: Negative Iliac Compression: Negative Musculoskeletal General: No muscle weakness Sacrum: No tenderness Strength 0=absent - 5=normal R Hip Flexor (L1-3): 5, L Hip Flexor (L1-3): 5, R Quadriceps (L2-4): 5, L Quadriceps (L2-4): 5, R Anterior Tibialis (L4-5): 5, L Anterior Tibialis (L4-5): 5, R EHL (L5): 5, L EHL (L5): 5, R Hamstrings (L5-S1): 5, L Hamstrings (L5-S1): 5, GS (S1): 5, L GS (S1): 5, R Peroneals (S1): 5, L Peroneals (S1): 5 Assessment AND Plan Problems 1. Right leg pain M79.604 2. Radicular pain of right lower extremity M54.10 Plan At this time patient has had continued radicular type pains down the right hip and leg. She has tried conservative measures including home care music therapist, massage a as well as a home exercise program which has included stretching. None of these modalities have really resolved the problem at the same time she did find some relief initially with home care music therapist. She does not have any evidence of any gross motor dysfunction at this time having normal strength and range of motion of the right hip. She does have some minor piriformis tenderness on exam. She does not have any pain on palpation of the back. She has negative seated and supine straight leg raise. I do feel that she does have some abnormal motion of the pelvis seen with forward flexion and pelvic rock while supine. Possible there could be a malalignment of the pelvis causing some piriformis disorder. She is going to continue with some home care music therapist and be trying to focus on the pelvis with some other therapies/modalities. We did discuss that since this has been occurring for many months without resolution in her doing so many conservative measures we go ahead and get an MRI of the lumbar spine just to rule out any type of abnormality of the discs and/or adjacent nerve roots. We are set up an MRI while she continues with therapy/home care music therapist. She will contact our office to make a follow-up appointment to go over the MRI in office. Orders Orders: Coding Level of Care Code Off vis,est,level 3 Diagnoses Right leg pain M79.604 Radicular pain of right lower extremity M54.10 01/05/18 1557 <Electronically signed by Frank GURROLA> Date Frank GURROLA Cosigner Signature: Date (if applicable) CC: Rima Jenkins Start: 10-23-2017 End: 10-23-2017 Chest PA and Lateral Comments: See Note; NOTES: [facility] Imaging Services [address] [place] [address] Chest PA and Lateral MR#: [id number] Acct: [id number] Name: MAGDIEL MAE Kai Rep #: [id number] : 1980 F 37 From: Carl Sanches MD PCP: Rima Jenkins DO Status: REG CLI Study: Chest PA and Lateral Date of Exam: 10/23/17 Exam# [id number] Ordering Dr: Rima Jenkins DO STUDY: X-RAY CHEST REASON FOR EXAM: Female, 37 years old. Cough. Anterior mid upper chest heaviness TECHNIQUE: 2 views with PA and lateral projections. . COMPARISON: None available. FINDINGS: The lungs appear clear and well expanded. There is no demonstrated pleural abnormality. No large gross pneumothorax identified. Normal size heart. Normal mediastinum and kyra. Normal visualized pulmonary arteries. Normal visualized aortic arch and descending thoracic aorta. Trachea midline. Nonacute visualized ribs, clavicles and shoulders. Moderate degenerative upper-mid thoracic spine seen. There is no demonstrated abnormality of the visualized soft tissue structures of the upper abdomen. No subdiaphragmatic free air seen grossly. RAD/Chest PA and Lateral IMPRESSION: Nonacute chest. Electronically Signed: Carl Sanches, at 14:59 EDT Tel , Service support , CC: Rima Jenkins DO Mine Safety Engineer: Signed Rima Jenkins Work Phone: Start: 08-28-2017 End: 08-29-2017 L/S Spine Comp/w Bending Views Comments: See Note; NOTES: [facility] Imaging Services [address] [place] [address] L/S Spine Comp/w Bending Views MR#: [id number] Acct: [id number] Name: MAGDIEL MAE Rep #: [id number] : 1980 F 37 From: Omar Mohan MD PCP: Rima Jenkins DO Status: REG CLI Study: L/S Spine Comp/w Bending Views Date of Exam: 08/28/17 Exam# [id number] Ordering Dr: Hope Bellamy DO STUDY: X-RAY - LUMBOSACRAL SPINE REASON FOR EXAM: Female, 37 years old. Back pain TECHNIQUE: 7 view(s) of the lumbosacral spine including flexion and extension were obtained. COMPARISON: None FINDINGS: Normal lumbar lordosis. There is no substantial scoliosis. There is no subluxation with flexion and extension. Normal vertebral bodies. Disc space narrowing and spurring at L5-S1. . The remainder of the disc spaces are well-preserved. Normal bilateral sacral ala, sacroiliac joints, and visualized sacrum. No fracture seen. Normal visualized soft tissue structures. RAD/L/S Spine Comp/w Bending Views IMPRESSION: Degenerative change at L5-S1. Electronically Signed: Omar Mohan MD at 23:58 EDT , Service support , CC: Hope Bellamy DO; Rima Jenkins DO Mine Safety Engineer: Signed Rima Jenkins Adenoid excision [place] [facility] Plan of Treatment Date Care Activity Detail Author Start: 11-26-2019 Procedure Education Eprescribed prescriptions (G8553) [facility] Work Phone: Start: 06-08-2019 Procedure Education Eprescribed prescriptions (G8553) [facility] Work Phone: Start: 04-09-2019 Procedure Education Eprescribed prescriptions (G8553) [facility] Work Phone: Start: 10-21-2017 Procedure Education Eprescribed prescriptions (G8553) [facility] Work Phone: Start: 10-21-2017 Provider Instructions for Treatment Follow up if no improvement or if symptoms worsen [facility] Work Phone: Start: 10-21-2017 Bacteria identified Respiratory culture Nom (Sput) Sputum Culture ([id number]) [facility] Work Phone: Start: 01-27-2017 Procedure Education Eprescribed prescriptions (G8553) [facility] Work Phone: Start: 01-27-2017 Provider Instructions for Treatment Follow up in 2 days [facility] Work Phone: Start: 05-13-2016 Patient Education Sore Throat *: acute pharyngitis [facility] Work Phone: Start: 05-13-2016 Procedure Education Eprescribed prescriptions (G8553) [facility] Work Phone: [facility] Work [facility]: [facility] Work [facility]: [facility] Work Phone: Immunizations Immunization Date Immunization Notes Care Provider Fa ramon 03-17-2018 influenza, seasonal, injectable Rima Jenkins [facility] Work Phone: Payers Date Payer Category Payer Policy ID Unknown Josué BC/BS Social History Date Type Detail Facility Alcohol Use Alcohol Use [facility] Work Phone: Family History Unknown Family Member Name Dates Details COPD Comments:Paternal Grandmothe r. Status:Active Hypertension Comments:Mother. Status:Active Leukemia Comments:Maternal Grandmothe r. Status:Active Lung/Respiratory Disease Comments:Paternal Grandmothe r. Status:Active Parkinson's Disease Comments:Maternal Grandfathe r. Status:Active Instructions Name Dates Details How to access health informa tion online Indication:BMI 25.0-25.9,adult Start:26-Nov-2019 Instruction Type:Patient Education How to access health informa tion online - Detail Indication:BMI 25.0-25.9,adult Start:26-Nov-2019 Instruction Type:Patient Education Patient Instructions Indication:BMI 25.0-25.9,adult Start:26-Nov-2019 Instruction Type:Provider Instructions for Treatment How to access health informa tion online Indication:BMI 25.0-25.9,adult Start:08-Jun-2019 Instruction Type:Patient Education How to access health informa tion online - Detail Indication:BMI 25.0-25.9,adult Start:08-Jun-2019 Instruction Type:Patient Education Patient Instructions Indication:Non-smoker Start:08-Jun-2019 Instruction Type:Provider Instructions for Treatment How to access health informa tion online Indication:Non-smoker Start:09-Apr-2019 Instruction Type:Patient Education How to access health informa tion online - Detail Indication:Non-smoker Start:09-Apr-2019 Instruction Type:Patient Education Patient Instructions Indication:Non-smoker Start:09-Apr-2019 Instruction Type:Provider Instructions for Treatment How to access health informa tion online Indication:Non-smoker Start:23-Oct-2017 Instruction Type:Patient Education How to access health informa tion online - Detail Indication:Non-smoker Start:23-Oct-2017 Instruction Type:Patient Education Patient Instructions Indication:Non-smoker Start:23-Oct-2017 Instruction Type:Provider Instructions for Treatment How to access health informa tion online Indication:Cough due to bronchospasm Start:21-Oct-2017 Instruction Type:Patient Education How to access health informa tion online - Detail Indication:Cough due to bronchospasm Start:21-Oct-2017 Instruction Type:Patient Education Patient Instructions Indication:Cough due to bronchospasm Start:21-Oct-2017 Instruction Type:Provider Instructions for Treatment How to access health informa tion online Indication:Non-smoker Start:27-Jan-2017 Instruction Type:Patient Education How to access health informa tion online - Detail Indication:Non-smoker Start:27-Jan-2017 Instruction Type:Patient Education Patient Instructions Indication:Reaction to influenza immunization, initial encounter Start:27-Jan-2017 Instruction Type:Provider Instructions for Treatment How to access health informa tion online Indication:Sore throat Start:13-May-2016 Instruction Type:Patient Education How to access health informa tion online - Detail Indication:Sore throat Start:13-May-2016 Instruction Type:Patient Education Advance Directives Name Dates Details Immunization Registry [place] - Effective on 04/09/2019. Expiration date unspecified Effective:09-Apr-2019 Additional Source Comments FOR RECORDS PERTAINING TO PATIENTS WHO ARE OR HAVE BEEN ENROLLED IN A CHEMICAL DEPENDENCY/SUBSTANCEABUSE PROGRAM, SOME INFORMATION MAY BE OMITTED. This clinical summary was aggregated from multiple sources. Caution should be exercised in using it in the provision of clinical care. This summary normalizes information from multiple sources, and as a consequence, information in this document may materially change the coding, format and clinical context of patient data. In addition, data may be omitted in some cases. CLINICAL DECISIONS SHOULD BE BASED ON THE PRIMARY CLINICAL RECORDS. [facility]. provides no warranty or guarantee of the accuracy or completeness of information in this document.
== END | disposition home or self-care (01) ==
PROVIDERS: PCP Internal Medicine; Referring Provider Internal Medicine; Visit Provider Internal Medicine
DX: Z12.31 Encounter for screening mammogram for malignant neoplasm of breast (principal)
CPT/HCPCS: 77063; 77067

== ENCOUNTER → 2023-07-02 | Outpatient (CLI) | payer OTHER, SELFPAY ==
[2023-07-02 11:09] LABS: Cholesterol 180 mg/dL (200); Glucose 95 mg/dL (74-106); High Density Lipoprotein 62 mg/dL; Triglycerides 53 mg/dL; Very Low Density Lipoprotein 11 mg/dL (5-40)
== END | disposition home or self-care (01) ==
LOC: MTLAB 08:00
PROVIDERS: PCP Internal Medicine; Referring Provider Internal Medicine; Visit Provider Internal Medicine
DX: Z00.00 Encounter for general adult medical examination without abnormal findings (principal); Z13.220 Encounter for screening for lipoid disorders
CPT/HCPCS: 36415; 80061; 82947

== ENCOUNTER → 2023-07-10 | Outpatient (CLI) | payer OTHER, SELFPAY ==
[2023-07-10 15:08] LABS: Absolute Neutrophil Count 4.1 X10^3/uL (2.0-7.7); Basophil# 0.05 X10^3/uL; Basophil% 0.7 % (0-1); Eosinophil# 0.19 X10^3/uL; Eosinophils% 2.8 % (0-5); Hematocrit 42.6 % (37-47); Hemoglobin 13.7 g/dL (12.0-15.0); Mean Corp Hgb Conc 32.2 g/dL (32-36); Mean Corpuscular Hgb 30.3 pg (27.0-32.0); Mean Corpuscular Volume 94.2 fL (81-99); Mean Platelet Vol. 10.2 fl (6.2-12.0); Monocyte# 0.51 X10^3/uL; Monocyte% 7.4 % (0-10); NRBC Flagged by Analyzer 0 % (0-5); Neutrophil # 4.12 X10^3/uL (2.7-7.7); Neutrophil % 59.8 % (47-70); Platelet Count 293 K/mm3 (150-450); RBC Distribution Width CV 12.3 % (11.6-14.6); RBC Distribution Width SD 42.6 fl (35.1-43.9); Red Blood Count 4.52 M/mm3 (4.2-5.4); White Blood Count 6.9 K/mm3 (4.4-11.0)
[2023-07-10 15:33] LABS: ALB/GLOB Ratio 1.1 RATIO (0.9-2.4); AST(SGOT) 23 U/L (15-37); Alanine Aminotransfer ALT/SGPT 36 U/L (13-56); Albumin, Serum 3.9 g/dL (3.2-5.0); Alkaline Phosphatase 92 U/L (45-117); Anion Gap 5 (5-15); BUN 12 mg/dL (7-18); BUN/Creat Ratio 13.3 RATIO (10-20); Calcium,Total 9.2 mg/dL (8.5-10.1); Chloride 102 mmol/L (98-107); EST Glomerular Filtration Rate 72 mL/min (>60); Est Glom Filt Rate - Afr Amer 87 mL/min (>60); Globulin 3.6 g/dL (2.2-4.2); Glucose 89 mg/dL (74-106); Potassium 4.2 mmol/L (3.5-5.1); Protein, Total 7.5 g/dL (6.4-8.2); Sodium Level 137 mmol/L (136-145)
== END | disposition home or self-care (01) ==
LOC: MTLAB 13:47
PROVIDERS: PCP Internal Medicine; Referring Provider Physician Assistant Surgical; Visit Provider Physician Assistant Surgical
DX: R53.83 Other fatigue (principal)
CPT/HCPCS: 36415; 80053; 85025

== ENCOUNTER → 2024-02-18 | Outpatient (CLI) | payer OTHER, SELFPAY ==
[2024-02-25 16:06] LABS: HPV APTIMA, High Risk Negative (Negative)
== END | disposition home or self-care (01) ==
LOC: LABSPEC 15:18
PROVIDERS: PCP Internal Medicine; Referring Provider Nurse Practitioner Family; Visit Provider Nurse Practitioner Family
DX: Z12.4 Encounter for screening for malignant neoplasm of cervix (principal)
CPT/HCPCS: 87624; 88175; G0145

== ENCOUNTER 2024-07-28 15:30 | Outpatient (RCR) | payer OTHER, SELFPAY ==
--- NOTE | 2024-07-21 16:29 | HP.PTEVAL ---
Patient's Visit Information Visit Information Visit Information: MAGDIEL MAE is a 44 year old F referred to Physical Therapy by IZABELA Ortega with a diagnosis of chronic thoracic pain. Date of Evaluation: 07/21/24 Physical Therapist: KRAIG Palmer Visit Plan Frequency: 1-2x /Week Duration: 6 Weeks Plan: 1-2 X/ week for 6 weeks for stretching of thoracic spine, lats, scapular strengthening, postural exercises, L RC strength with HEP HEP: prayer lat stretch, Mid row (scapular down and back with green band), Rhomboid mid back stretch (pole) 30 sec X3, green band double ER with scapular down and back Subjective Subjective: Never had issues before. It is mid back Bra line T7-T9. She has always been a runner and she does yoga. She did good Yoga...some lower Traps and has tried to keep strong. She did 10 miles and trained and wore a good bra... week of race did a 2 mile jog and wore the wrong bra and then neck day sje tied to roll over in bed and had pain. In her job she is leaning over. She stuggled more to the L than R with rotation.... She was fine and then the pain came back 7/10 pain to breath and walk and had no ROM. Advil was not touching it. X-rays looked a little wedged at T7 area. She did a steroid but has not run. Gentle Yoga and she is sore after but does not flare it up. She has been afraid to run. Today her pain is minimal but she is doing absolutely nothing. She needs to do more strengthening in that area. She is trying to get more. They might do an MRI after. Got adjusted... No N&T. R handed. L4/L5/S1 stenosis Pain Thoracic pain: Pain Intensity (Out of 10): 1 Objective Objective: Pt is R handed. She has had a previous L shoulder issue in high school Trunk AROM: flexion 100%, ext 100%, SB B 100%, Rot B 80% no pain with rotation since the steroids UE AROM: WFL B pain with full flexion and ABD on the L (posterior pinch kind of pain) UE MMT: WFL B C-spine AROM: flexion and ext 100%, SB B 80%, Rot B 100% Tight Lats B but worse on the L/Pec tightness B but on the L it increases her L shoulder pain Balance/Special Test Scores Oswestry Low Back Score: 8 Goals Goal 1:: I HEP Goal Time Frame: 6-8 Weeks Goal 2:: Decrease thoracic pain to be able to run again without pain Goal Time Frame: 6-8 Weeks Goal 3:: Be able to stretch Lats B without having pinching pain Rehabilitation Potential Rehabilitation Potential: Good Anticipated Interventions Patient/Client Instruction: Educate patient on: Condition and Plan of Care For the Purpose of:: To decrease pain, To increase ROM, To improve nutrient delivery to tissue, To improve muscle performance and motor function, To improve ability to perform ADL's, To increase tolerance to activity/condition/position, To decrease level of supervision to perform tasks, To improve ability of physical actions for home/community/work/leisure, To improve health of tissue, To decrease soft tissue restriction and To increase flexibility/ROM Therapeutic Exercise to Include: Strength training, Body mechanics, Postural training, Flexibilty training, Neuromotor development, Passive ROM, Active ROM and Scapular Strength/Stabilization For the Purpose of:: To decrease pain, To increase ROM, To improve nutrient delivery to tissue, To increase oxygenation perfusion, To improve muscle performance and motor function, To improve health of tissue, To decrease soft tissue restriction and To increase flexibility/ROM Manual Therapy Techniques to Include: Soft tissue mobilization For the Purpose of:: To decrease pain, To increase ROM, To improve nutrient delivery to tissue, To improve muscle performance and motor function, To improve ability to perform ADL's, To improve performance and independence with ADL's, To decrease level of supervision to perform tasks, To improve health of tissue, To decrease soft tissue restriction and To increase flexibility/ROM Text: Thank you for the opportunity to evaluate your patient. For Medicare and Medicare HMO plans, please review the plan of care and approve it. It will need to be FAXED BACK to us at [phone] for Medicare purposes. For Medicare only, by signing this I certify the plan of care. Please let me know if there are questions or concerns regarding this plan of care. Physician Signature: Date:
--- NOTE | 2024-11-22 14:11 | HP.PT.NRP ---
Patient Information Patient Information: MAGDIEL MAE was seen in my office for initial evaluation on 07/21/24. The following Plan of Care was established for this patient: POC Established Initial Frequency: 1-2x /Week Initial Duration: 6 Weeks Anticipated Interventions Patient/Client Instruction: Educate patient on: Condition and Plan of Care For the Purpose of:: To decrease pain, To increase ROM, To improve nutrient delivery to tissue, To improve muscle performance and motor function, To improve ability to perform ADL's, To increase tolerance to activity/condition/position, To decrease level of supervision to perform tasks, To improve ability of physical actions for home/community/work/leisure, To improve health of tissue, To decrease soft tissue restriction and To increase flexibility/ROM Therapeutic Exercise to Include: Strength training, Body mechanics, Postural training, Flexibilty training, Neuromotor development, Passive ROM, Active ROM and Scapular Strength/Stabilization For the Purpose of:: To decrease pain, To increase ROM, To improve nutrient delivery to tissue, To increase oxygenation perfusion, To improve muscle performance and motor function, To improve health of tissue, To decrease soft tissue restriction and To increase flexibility/ROM Manual Therapy Techniques to Include: Soft tissue mobilization For the Purpose of:: To decrease pain, To increase ROM, To improve nutrient delivery to tissue, To improve muscle performance and motor function, To improve ability to perform ADL's, To improve performance and independence with ADL's, To decrease level of supervision to perform tasks, To improve health of tissue, To decrease soft tissue restriction and To increase flexibility/ROM Last Seen Last Seen: This patient was last seen in our office 07/28/24. Pertinent comments regarding their Physical therapy will appear below: [place] [facility] At this point I will be discontinuing this patient from physical therapy. I would be happy to see this patient again in the future if found appropriate by the physician. Thank you! Martha Wilson, MPT Balance/Gait/Functional tests Balance/Special Test Scores Oswestry Low Back Score: 8
== END 2024-07-28 19:00 | disposition home or self-care (01) ==
LOC: PT 15:30
PROVIDERS: PCP Internal Medicine; Referring Provider Student in an Organized Health Care Education/Training Program; Visit Provider Student in an Organized Health Care Education/Training Program
DX: M54.9 Dorsalgia, unspecified (principal); G89.29 Other chronic pain
CPT/HCPCS: 97110; 97161

== ENCOUNTER → 2024-12-16 | Outpatient (CLI) | payer OTHER, SELFPAY ==
--- NOTE | 2024-12-16 15:45 | BI_ITS ---
EXAM: SCRN MAMM (CAD)W/PADMA BILAT DATE: 12/16/2024 CLINICAL HISTORY: F, Age 44 y/o , SCREENING BREAST CA TECHNIQUE: Procedure Code: [id number] Modality: MG Procedure: SCRN MAMM (CAD)W/PADMA BILAT COMPARISON: Prior exam(s) dated 05/09/2023, 08/08/2021, 05/06/2019. FINDINGS: TISSUE DENSITY: The breasts are heterogeneously dense, which may obscure small masses. The mammogram demonstrates that the patient has dense breasts. Supplemental screening with whole breast ultrasound or MRI may be considered for further evaluation. Bilateral Breast Mammographic Findings: No significant masses, calcifications or other abnormalities are identified. BI/SCRN MAMM (CAD)W/PADMA BILAT IMPRESSION: There is no mammographic evidence of malignancy. OVERALL FINAL ASSESSMENT BI-RADS 1: NEGATIVE. RECOMMENDATION: Routine annual follow-up in 1 Year Additional Recommendation none A letter with findings and recommendations will be mailed to the patient. Reading Location: [id number]
== END | disposition home or self-care (01) ==
LOC: OPBI 15:39
PROVIDERS: PCP Internal Medicine; Referring Provider Nurse Practitioner Family; Visit Provider Nurse Practitioner Family
DX: Z12.31 Encounter for screening mammogram for malignant neoplasm of breast (principal)
CPT/HCPCS: 77063; 77067